=== PATIENT | female | born 1995 | race Two or more races ===

== ENCOUNTER 2022-11-06 18:41 | Emergency (ER) | payer MEDICAID ==
[~2022-11-06] VITALS: Ht 144.8 cm; Wt 51.2 kg
[2022-11-06 19:11] VITALS: BP 120/74; PULSE 84; RESP 16; TEMP 98.2; O2SAT 97
[2022-11-06] MEDS ORDERED: AMOX875T4 PO (19:20)
[2022-11-06] MEDS ORDERED: ACET500T58 PO (19:20)
== END 2022-11-06 19:35 | disposition home or self-care (01) ==
LOC: ER 18:41
DX: L60.0 Ingrowing nail (principal); Z98.890 Other specified postprocedural states

== ENCOUNTER 2023-12-31 08:06 | Emergency (ER) | payer MEDICAID ==
[~2023-12-31] VITALS: Ht 147.3 cm; Wt 48.0 kg
[~2023-12-31 08:06] MED LIST: ACET500T58 PO; AMOX875T4 PO
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
[2023-12-31] MEDS ORDERED: IBU600T PO (12:43)
[2023-12-31] MEDS ORDERED: CYCL-838 PO (12:43)
[2023-12-31 12:53] VITALS: BP 103/54; PULSE 65; RESP 16; TEMP 98.2; O2SAT 99
== END 2023-12-31 12:54 | disposition home or self-care (01) ==
LOC: ER 08:06
DX: S46.911A Strain of unspecified muscle, fascia and tendon at shoulder and upper arm level, right arm, initial encounter (principal); R07.89 Other chest pain; Z98.890 Other specified postprocedural states; V89.2XXA Person injured in unspecified motor-vehicle accident, traffic, initial encounter; Y93.89 Activity, other specified; Y92.89 Other specified places as the place of occurrence of the external cause; Y99.8 Other external cause status
CPT/HCPCS: 71045; 73030; 73502; 81025